=== PATIENT | male | born 1980 | race Caucasian/White ===

== ENCOUNTER 2016-03-29 14:03 | Emergency (ER) | payer SELFPAY ==
--- NOTE | 2016-03-29 14:57 | Emergency Department Record ---
History of Present Illness - General Chief complaint: Abscess Stated complaint: ABSCESS ON BUTT Time Seen by Provider: 03/29/16 14:23 Source: Patient, RN notes reviewed Mode of Arrival: Ambulatory - History of Present Illness Initial comments: perirectal abscess and a fistula with draiage by the rectum spontaneously and an abscess about 3 inches away from the rectum and it was pointing and almost ready to drain. Onset/Timin -: Days(s) Year of Tetanus Vaccination: unknown Patient Tetanus UTD (within 5 yrs): Yes Location: Buttocks Severity: Mild Severity scale (1-10): 3 Quality: Other Consistency: Now resolved Improves with: None Worsens with: None Context: None Treatments Prior to Arrival: None - Related Data Previous Rx's Medication Instructions Recorded Cephalexin [Keflex] 500 mg PO QID #40 cap 03/29/16 Hydrocodone/Acetaminophen [Gable 1 tab PO Q6H PRN #20 tab 03/29/16 5mg/325mg] Sulfamethoxazole/Trimethoprim 1 tab PO BID #20 tab 03/29/16 [Bactrim Ds] Allergies Allergy/AdvReac Type Severity Reaction Status Date / Time No Known Allergies Allergy Unverified 12/08/15 19:37 Travel Screening - Travel/Exposure Within Last 30 Days Have you traveled within the last 30 days?: No - Travel/Exposure Within Last Year Have you traveled outside the [place] in the last year?: No - Additonal Travel Details Have you been exposed to anyone with a communicable illness?: No - Travel Symptoms Symptom Screening: None Review of Systems Reviewed: No additional complaints except as noted below Constitutional: Reports: As per HPI. Denies: Chills, Fever, Malaise, Night sweats, Weakness, Weight change Eyes: Reports: As per HPI. Denies: Eye discharge, Eye pain, Photophobia, Vision change ENT: Reports: As per HPI. Denies: Congestion, Dental pain, Ear pain, Epistaxis , Hearing loss, Throat pain Respiratory: Reports: As per HPI. Denies: Cough, Dyspnea, Hemoptysis, Stridor, Wheezes Cardiovascular: Reports: As per HPI. Denies: Arrhythmia, Chest pain, Dyspnea on exertion, Edema, Murmurs, Orthopnea, Palpitations, Paroxysmal nocturnal dyspnea, Rheumatic Fever, Syncope Endocrine: Reports: As per HPI. Denies: Fatigue, Heat or cold intolerance, Polydipsia, Polyuria Gastrointestinal: Reports: As per HPI. Denies: Abdominal pain, Constipation, Diarrhea, Hematemesis, Hematochezia, Melena, Nausea, Vomiting Genitourinary: Reports: As per HPI. Denies: Dysuria, Frequency, Hematuria, Incontinence, Retention, Testicular pain, Testicular mass, Urgency Musculoskeletal: Reports: As per HPI. Denies: Arthralgia, Back pain, Gout, Joint swelling, Myalgia, Neck pain Skin: Reports: As per HPI. Denies: Bruising, Change in color, Change in hair/ nails, Lesions, Pruritus, Rash Neurological: Reports: As per HPI. Denies: Abnormal gait, Confusion, Headache, Numbness, Paresthesias, Seizure, Tingling, Tremors, Vertigo, Weakness Psychiatric: Reports: As per HPI. Denies: Anxiety, Auditory hallucinations, Depression, Homicidal thoughts, Suicidal thoughts, Visual hallucinations Hematological/Lymphatic: Reports: As per HPI. Denies: Anemia, Blood Clots, Easy bleeding, Easy bruising, Swollen glands Physical Exam - General General Appearance: Alert, Oriented x3, Cooperative, No acute distress - Head Head exam: Normal inspection - Eye Eye exam: Normal appearance, PERRL Pupils: Normal accommodation - ENT ENT exam: Normal exam, Mucous membranes moist, Normal external ear exam, Normal orophraynx, TM's normal bilaterally Ear exam: Normal external inspection. negative: External canal tenderness Nasal Exam: Normal inspection. negative: Discharge, Sinus tenderness Mouth exam: Normal external inspection, Tongue normal Teeth exam: Normal inspection. negative: Dental caries Throat exam: Normal inspection. negative: Tonsillar erythema, Tonsillar exudate - Neck Neck exam: Normal inspection, Full ROM. negative: Tenderness - Respiratory Respiratory exam: Normal lung sounds bilaterally. negative: Respiratory distress - Cardiovascular Cardiovascular Exam: Regular rate, Normal rhythm, Normal heart sounds - GI/Abdominal GI/Abdominal exam: Soft, Normal bowel sounds. negative: Tenderness - Rectal Rectal exam: Tenderness, Other (abcess about 3 inches from the rectum and it is pointing and a fistula track which goes to the perirectal area which is already draining.) - exam: Deferred - Extremities Extremities exam: Normal inspection, Full ROM, Normal capillary refill. negative: Tenderness - Back Back exam: Reports: Normal inspection, Full ROM. Denies: Muscle spasm, Rash noted, Tenderness - Neurological Neurological exam: Alert, Normal gait, Oriented X3, Reflexes normal - Psychiatric Psychiatric exam: Normal affect, Normal mood - Skin Skin exam: Dry, Intact, Normal color, Warm Course Vital Signs 03/29/16 14:18 Temperature 98.4 F Pulse Rate 89 Respiratory 20 Rate Blood Pressure 121/97 Pulse Ox 97 - Reevaluation(s) Reevaluation #1: 1 % lidocaine and I and D abscess with lots of purulent drainage. He also has a fistula tract which rins to the perirectal area. 03/29/16 15:02 Disposition Clinical Impression: Zenaida-rectal abscess, Fistula Disposition: Home, Self-Care Condition: (1) Good Instructions: Abscess Incision and Drainage (ED), Abscess (ED) Additional Instructions: remove packing in two days and sitz bath three times a day. follow up with Dr. Tipton next week will need a bigger procedure to stop these from happening again Prescriptions: Sulfamethoxazole/Trimethoprim [Bactrim Ds] 1 tab PO BID #20 tab Cephalexin [Keflex] 500 mg PO QID #40 cap Hydrocodone/Acetaminophen [Gable 5mg/325mg] 1 tab PO Q6H PRN #20 tab PRN Reason: Pain - General Forms: Patient Portal Access Time of Disposition: 15:12
== END 2016-03-29 15:44 | disposition home or self-care (01) ==
LOC: ER 14:03
DX: K61.1 Rectal abscess (principal)
CPT/HCPCS: 46040; 99284

== ENCOUNTER 2016-05-08 09:43 | Day surgery (SDC) | payer MEDICAID ==
[~2016-05-08 09:43] MED LIST: ACETAMINOPHEN 1000MG/100 ML PREMIX IV ONE; CEFAZOLIN 1 Gram 50 ML IVPB ONE
[2016-05-08] MEDS ORDERED: ONDANSETRON HCL IV 4 MG/2 ML VIAL IVP ONE (14:00)
[2016-05-08] MEDS ORDERED: MIDAZOLAM HCL 2MG/2ML VIAL IV ONE (14:00)
[2016-05-08] MEDS ORDERED: PROPOFOL 10 MG/ML VIAL IV ONE (14:00)
[2016-05-08] MEDS ORDERED: FENTANYL PF 100MCG/2ML VIAL IV ONE (14:00)
[2016-05-08] MEDS ORDERED: KETOROLAC 30 MG/ML VIAL IVP ONE (14:00)
[2016-05-08] MEDS ORDERED: SEVOFLURANE 250 ML INH ONE (14:00)
[2016-05-08] MEDS ORDERED: BUPIVACAINE 0.25% W/EPI MPF 30ML VIAL IVP ONE (15:01)
[2016-05-08] MEDS ORDERED: DIBUCAINE 30 GM TUBE TOP ONE (15:01)
[2016-05-08] MEDS ORDERED: GELATIN SPONGE,ABSORBABLE 1 EACH SPONGE TP ONE (15:01)
[2016-05-08] MEDS ORDERED: HYDROCODONE/APAP 5/325MG TABLET PO ONE (15:02)
--- NOTE | 2016-05-10 15:55 | Operative Note ---
DATE OF SURGERY: 05/08/2016 PREOPERATIVE DIAGNOSIS: Chronic anal fistula. POSTOPERATIVE DIAGNOSIS: Chronic anal fistula. REFERRING PHYSICIAN: Unknown OPERATION: Anal fistulotomy. Anesthesia: General Anesthesia Provider: Department of Anesthesia Indication: The patient is a 35-year-old male who has had episodic abscess in his left gluteal region for the last 4 to 5 years. He states about 2 or 3 times a year this will open up and drain; the last of which was about a month ago. On exam when I saw him in the clinic, he clearly had a perianal fistula. We did discuss fistulotomy, the risks, benefits, and alternatives. The risks include bleeding, infection, incontinence, recurrence, prolonged wound healing. He understood fully. Therefore, consent was signed and questions answered. PROCEDURE: He was taken to the operating room, placed in the supine position. General anesthesia was administered per Department of Anesthesia. The patient was rotated into lithotomy position. His perianal region was prepped and draped in the usual fashion. Adequate time-out was performed. He did receive a preoperative antibiotic. At this time, there was an opening about 3 cm from his anal verge off to his left anterior side. At this time, a perianal block was done with about 10 mL of 0.25% Sensorcaine and epinephrine. At this time, a malleolar probe was used to probe the external opening and clearly could see an opening on the inside along the dentate line. At this time, cautery was used to open up the fistulous track. We did not traverse his external sphincter at all. The wound was then marsupialized with 2-0 Vicryl in a running locking fashion. Again, the sphincter muscle was completely intact. Dibucaine ointment was placed as well as Gelfoam. He was taken to the recovery room in satisfactory condition. FINDINGS AT SURGERY: Anal fistula, repaired as above. MTDD
== END 2016-05-08 13:50 | disposition home or self-care (01) ==
LOC: SUR 09:43
PROVIDERS: ATTEND Surgery
DX: K60.3 Anal fistula (principal)
CPT/HCPCS: 46270; 00902; J1885; J2405; J3010; J0690

== ENCOUNTER 2017-08-30 23:16 | Emergency (ER) | payer MEDICAID ==
--- NOTE | 2017-08-30 23:55 | Emergency Department Record ---
History of Present Illness - General Chief complaint: Toothache Stated complaint: TOOTHACHE Time Seen by Provider: 08/30/17 23:47 Source: Patient Mode of Arrival: Ambulatory - History of Present Illness Initial comments: The patient states that he thinks he is grinding his teeth because he wakes up with the right upper and lower teeth hurting. He has been trying oragel and ambusol which only temporarily relieve of his discomfort. He has no dentist. MD complaint: Tooth pain Onset/Timin -: Days(s) Location: Tooth # Severity: Moderate Severity scale (1-10): 8 Quality: Sharp Consistency: Intermittent Improves with: None Worsens with: None Associated Symptoms: Toothache - Related Data Home Medications Medication Instructions Recorded Confirmed Last Taken Fluoxetine HCl [Prozac] 20 mg PO DAILY 08/30/17 08/30/17 Unknown Previous Rx's Medication Instructions Recorded Penicillin V Potassium 250 mg PO QID #39 tab 08/31/17 Allergies Allergy/AdvReac Type Severity Reaction Status Date / Time No Known Allergies Allergy . Verified 08/30/17 23:18 Travel Screening - Travel/Exposure Within Last 30 Days Have you traveled within the last 30 days?: No Review of Systems Reviewed: No additional complaints except as noted below Constitutional: Reports: As per HPI. Denies: Chills, Fever, Malaise, Night sweats, Weakness, Weight change Eyes: Reports: As per HPI. Denies: Eye discharge, Eye pain, Photophobia, Vision change ENT: Reports: As per HPI. Denies: Congestion, Dental pain, Ear pain, Epistaxis , Hearing loss, Throat pain Respiratory: Reports: As per HPI. Denies: Cough, Dyspnea, Hemoptysis, Stridor, Wheezes Cardiovascular: Reports: As per HPI. Denies: Arrhythmia, Chest pain, Dyspnea on exertion, Edema, Murmurs, Orthopnea, Palpitations, Paroxysmal nocturnal dyspnea, Rheumatic Fever, Syncope Endocrine: Reports: As per HPI. Denies: Fatigue, Heat or cold intolerance, Polydipsia, Polyuria Gastrointestinal: Reports: As per HPI. Denies: Abdominal pain, Constipation, Diarrhea, Hematemesis, Hematochezia, Melena, Nausea, Vomiting Genitourinary: Reports: As per HPI. Denies: Dysuria, Frequency, Hematuria, Incontinence, Retention, Testicular pain, Testicular mass, Urgency Musculoskeletal: Reports: As per HPI. Denies: Arthralgia, Back pain, Gout, Joint swelling, Myalgia, Neck pain Skin: Reports: As per HPI. Denies: Bruising, Change in color, Change in hair/ nails, Lesions, Pruritus, Rash Neurological: Reports: As per HPI. Denies: Abnormal gait, Confusion, Headache, Numbness, Paresthesias, Seizure, Tingling, Tremors, Vertigo, Weakness Psychiatric: Reports: As per HPI. Denies: Anxiety, Auditory hallucinations, Depression, Homicidal thoughts, Suicidal thoughts, Visual hallucinations Hematological/Lymphatic: Reports: As per HPI. Denies: Anemia, Blood Clots, Easy bleeding, Easy bruising, Swollen glands Past Medical History - SOCIAL HISTORY Smoking Status: Current every day smoker Alcohol Use: None Drug Use: None - RESPIRATORY Hx Respiratory Disorders: Yes - CARDIOVASCULAR Hx Cardio Disorders: No - NEURO Hx Neuro Disorders: Yes Hx of Migraines: Yes (in 20's) - GI Hx GI Disorders: Yes Hx Wt Loss/Wt Gain: Yes (20 lb gain in last 2-3 months) - Hx Genitourinary Disorders: No - ENDOCRINE Hx Endocrine Disorders: No Hx Diabetes: No Hx Thyroid Disease: No - MUSCULOSKELETAL Hx Musculoskeletal Disorders: No - PSYCH Hx Psych Problems: Yes Hx Anxiety: Yes Hx Depression: Yes - HEMATOLOGY/ONCOLOGY Hx Hematology/Oncology Disorders: No Family Medical History Any Significant Family History?: Yes Hx Alcohol Use: Mother Physical Exam - General General Appearance: Alert, Oriented x3, Cooperative, Mild distress - Head Head exam: Normal inspection, Other (masseter muscle tender to palpation with mild spasm right side.) - Eye Eye exam: Normal appearance, PERRL Pupils: Normal accommodation - ENT ENT exam: Normal exam, Mucous membranes moist, Normal external ear exam, Normal orophraynx, TM's normal bilaterally Ear exam: Normal external inspection. negative: External canal tenderness Nasal Exam: Normal inspection. negative: Discharge, Sinus tenderness Mouth exam: Normal external inspection, Tongue normal Teeth exam: Dental tenderness # (entire right upper and lower side of dentition tender with buccal mucosal cavities at gumline). negative: Dental caries Throat exam: Normal inspection. negative: Tonsillar erythema, Tonsillomegaly, Tonsillar exudate - Neck Neck exam: Normal inspection, Full ROM. negative: Lymphadenopathy, Meningismus , Tenderness - Respiratory Respiratory exam: Normal lung sounds bilaterally. negative: Respiratory distress - Cardiovascular Cardiovascular Exam: Regular rate, Normal rhythm, Normal heart sounds - GI/Abdominal GI/Abdominal exam: Soft, Normal bowel sounds. negative: Tenderness - Rectal Rectal exam: Deferred - exam: Deferred - Extremities Extremities exam: Normal inspection, Full ROM, Normal capillary refill. negative: Tenderness - Back Back exam: Reports: Normal inspection, Full ROM. Denies: Muscle spasm, Rash noted, Tenderness - Neurological Neurological exam: Alert, Normal gait, Oriented X3, Reflexes normal - Psychiatric Psychiatric exam: Normal affect, Normal mood - Skin Skin exam: Dry, Intact, Normal color, Warm Course Vital Signs 08/30/17 23:25 Temperature 97.8 F Pulse Rate [ 74 Pulse Ox Probe] Respiratory 20 Rate Blood Pressure 136/85 [Left Arm] Pulse Ox 98 - Reevaluation(s) Reevaluation #1: Patient encouraged to follow with dentist, take all antibiotics until gone. Tylenol alternated with ibuprofen s directed for pain. Dental referral given. 08/31/17 00:02 Medical Decision Making - Management Options MDM Management: No Additional Work-up Planned Disposition Disposition: Discharge Clinical Impression: Odontalgia, Grinding of teeth Disposition: Home, Self-Care Condition: (1) Good Instructions: Toothache (ED) Additional Instructions: Take Pen VK as directed until gone. Tylenol alternated with ibuprofen as directed as needed for pain. Benadryl 50 for sleep as needed. Dental referral list: call this a.m. for appointment. Prescriptions: Penicillin V Potassium 250 mg PO QID #39 tab Quality - Quality Measures Quality Measures: N/A - Blood Pressure Screening Does Patient Have Any of the Following: No Blood Pressure Classification: Pre-Hypertensive BP Reading Systolic Measurement: 136 Diastolic Measurement: 85 Screening for High Blood Pressure: < Pre-Hypertensive BP, F/U Documented > [ [id number]] Pre-Hypertensive Follow-up Interventions: Follow-up with rescreen every year.
[2017-08-30] MEDS ORDERED: TRAMADOL HCL 50 MG TABLET PO ONE (23:59)
[2017-08-30] MEDS ORDERED: PENICILLIN V POTASSIUM 250 MG TAB PO ONE (23:59)
[2017-08-31] MEDS ORDERED: DIPHENHYDRAMINE HCL 25 MG CAPSULE PO ONE
== END 2017-08-31 00:21 | disposition home or self-care (01) ==
LOC: ER 23:16
DX: K08.89 Other specified disorders of teeth and supporting structures (principal); G47.63 Sleep related bruxism; F17.210 Nicotine dependence, cigarettes, uncomplicated
CPT/HCPCS: 99282